=== PATIENT | male | born 1960 | race Caucasian/White ===

== ENCOUNTER 2023-07-30 09:02 | Outpatient (REF) | payer OTHER, SELFPAY ==
--- NOTE | ~2023-07-30 | XR_ITS ---
EXAMINATION: XR CHEST CLINICAL INFORMATION: Weight loss, hoarseness of voice and fatigue COMPARISON: None available. TECHNIQUE: 2 views of the chest were obtained. FINDINGS: No significant abnormality is noted involving the heart, lungs, mediastinum, bony thorax or soft tissues. XR/XR chest 2V IMPRESSION: Unremarkable examination.
[2023-07-30 11:28] LABS: MANUAL DIFF FLAG NO
[2023-07-30 11:37] LABS: Appearance Urine Clear; Color Urine Dark Yellow; Glucose Urine UA >=1000 mg/dL (Negative); Leukocyte Esterase Urine Small (1+) (Negative); Nitrite Urine Negative (Negative); PH 5.5 (5.0-9.0); Specific Gravity - Urine 1.025 (1.005-1.025); UMIC TRIGGER UA YES; Urine Blood Negative (Negative); Urine Ketones Negative (Negative); Urine Protein 30 (1+) mg/dL (Neg-Trace)
[2023-07-30 11:43] LABS: Basophils Percent Auto 0.5 % (0-2); Eosinophils Absolute Auto 0.1 X10*3/uL (0.0-0.4); Eosinophils Percent Auto 1.4 % (0-4); Hematocrit 39.2 % (42.0-52.0); Hemoglobin 13.2 g/dl (14.0-18.0); Imm Gran Abs Auto 0.02 X10*3/uL (0.00-0.03); Imm Gran Pct Auto 0.2 % (0.0-0.4); Lymphocytes Absolute Auto 1.7 X10*3/uL (1.2-4.9); Lymphocytes Percent Auto 20.4 % (20-40); Mean Corpuscular HGB Conc 33.7 g/dl (31.0-36.0); Mean Corpuscular Hemoglobin 28.2 pg (27.0-33.0); Mean Corpuscular Volume 83.8 fL (80.0-98.0); Mean Platelet Volume 10.6 fL (9.4-12.4); Monocytes Absolute Auto 0.7 X10*3/uL (0.1-1.2); Monocytes Percent Auto 8.3 % (2-11); Neutrophils Absolute Auto 5.6 x10*3/uL (2.0-8.3); Neutrophils Percent Auto 69.2 % (45-73); Platelet Count 292 X10*3/uL (160-400); Red Blood Count 4.68 X10*6/uL (4.60-5.80); Red Cell Distribution Width 11.4 % (11.0-16.0); White Blood Count 8.1 X10*3/uL (4.8-10.8)
[2023-07-30 11:58] LABS: Estimated Average Glucose 206 mg/dL; Hemoglobin A1c % 8.8 % (<6.0)
[2023-07-30 12:06] LABS: Alanine Aminotransferase 15 U/L (0-40); Albumin Level 3.8 g/dL (3.5-5.0); Alkaline Phosphatase 76 U/L (39-117); Anion Gap 12 (12-20); Aspartate Amino Transferase 10 U/L (5-37); Bilirubin Total 0.4 mg/dL (0.0-1.0); Blood Urea Nitrogen 14 mg/dL (9-16); C Reactive Protein 2.16 mg/dL (< or = 0.50); Calcium 9.7 mg/dL (8.4-10.2); Carbon Dioxide 27 mmol/L (22-29); Chloride 101 mmol/L (96-108); Estimated Glomerular Filt Rate > 60; Glucose Random 309 mg/dL (60-115); Sodium 136 mmol/L (135-145); Total Protein 6.8 g/dL (6.5-8.0)
[2023-07-30 12:13] LABS: Bacteria Urine 4+ (None Seen); Hyaline Casts Urine 0-2 /LPF (0-2); RBC Urine 0-2 /HPF (0-2); Squamous Epithelial Cell Urine 0-2 /HPF (0-2)
[2023-07-30 12:16] LABS: Prostate Specific Antigen 6.49 ng/mL (<0.05-4.0)
[2023-07-30 12:20] LABS: Erythrocyte Sedimentation Rate 26 MM/HR (0-15)
[2023-08-01 22:33] LABS: TS Negative Control Passed; TS Panel A 0; TS Panel B 0; TS Positive Control Passed; TSpotTB Negative (Negative)
== END 2023-07-30 09:03 | disposition home or self-care (01) ==
LOC: HO.HMGCX 09:02
PROVIDERS: PCP Internal Medicine; Visit Provider Internal Medicine
DX: Z12.5 Encounter for screening for malignant neoplasm of prostate (principal); Z11.1 Encounter for screening for respiratory tuberculosis; R53.83 Other fatigue; R63.4 Abnormal weight loss; R49.0 Dysphonia; R13.10 Dysphagia, unspecified
CPT/HCPCS: 36415; 71046; 80053; 81001; 83036; 84134; 84153; 85025; 85652; 86140; 86481

== ENCOUNTER 2023-08-04 08:44 | Outpatient (REF) | payer OTHER, SELFPAY ==
--- NOTE | ~2023-08-04 | FL_ITS ---
EXAMINATION: FL BARIUM SWALLOW CLINICAL INFORMATION: Dysphagia COMPARISON: None TECHNIQUE: Fluoroscopic air contrast upper GI examination was performed utilizing standard techniques with thin and thick barium and effervescent granules. Numerous spot images were obtained. FINDINGS: Lateral cine images of the oropharynx and hypopharynx demonstrate normal swallow mechanism with normal epiglottic inversion and soft palate elevation. No tracheal penetration, glottic or subglottic aspiration identified. Extensive pooling in the piriform sinuses and vallecula noted. No nasopharyngeal reflux present. Hypopharyngeal structures appear normal without evidence of mass or diverticulum. There was no significant cricopharyngeal achalasia. Dual and single contrast images of the esophagus demonstrate normal caliber, contour, and mucosal pattern. No evidence of stricture, mass, or ulcerations identified. Esophageal peristalsis was normal. A small type I hiatal hernia is present. No significant gastroesophageal reflux was seen during the course of the examination and on reflux views. FLUOROSCOPY TIME: 2 minutes 27 seconds Number of Spot Images: 3 Number of Cine: 7 DOSE AREA PRODUCT: 1084 uGy-m2 (microgray-meter squared) FL/FL barium swallow IMPRESSION: 1. Small type I hiatal hernia, otherwise unremarkable esophagram. This procedure was performed by Jesse Morris PA-C, and supervised by Dr. Strickland
== END 2023-08-04 08:45 | disposition home or self-care (01) ==
LOC: HO.XRAY 08:44
PROVIDERS: PCP Internal Medicine; Visit Provider Internal Medicine
DX: R49.0 Dysphonia (principal); R13.10 Dysphagia, unspecified; R06.09 Other forms of dyspnea
CPT/HCPCS: 74220

== ENCOUNTER 2023-08-06 14:14 | Outpatient (AMB) | payer OTHER, SELFPAY ==
--- NOTE | 2023-08-06 14:21 | A.OFFVIS_ITS ---
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 He is somewhat of a vague historian however he says last spring he was very active and subsequently started having retrosternal chest pressure which lasted for short period of time and then they went away after he started drinking more water. He then remained very active through the summer and then in early fall developed acute sciatica which cause him to be very sedentary for about a month. Then he was started on steroid treatment and the symptoms resolved and in month of April he was again back to his activity level without much symptoms. Then May he got symptoms of sciatica again he was started on steroids again. Following that in month of June he started noticing symptoms of headache and nasal congestion and subsequently was diagnosed with uncontrolled sugar related to diabetes. Seems like steroids precipitated his diabetes. He is longstanding history of hyperlipidemia on moderate does statin therapy at 10 mg with atorvastatin which was recently increased to 20 mg. Since last month he has been noticing intermittent symptoms of shortness of breath which is not always exertion related. He is also noticing retrosternal chest tightness which is again not always exertional related but can happen with exertion. He has not exerting himself to the level that he was in the past. He was referred here for further evaluation prior to participating physical therapy and further treatment options for his sciatica. He has currently not measuring his sugar on low-dose metformin therapy. He denies any prior smoking or significant family history of premature coronary artery disease [facility] Medical History Hyperlipidemia Diabetes Surgical History History of prostate surgery Family History Father Diabetes Mother No problems noted. Social History Patient Tobacco Use Status: Never used Tobacco Review of Systems Const Denies chills, Denies daytime sleepiness, Denies fatigue, Denies fever(s), Denies frequent falls, Denies poor appetite, Denies snoring, Denies stops breathing during sleep, Denies weakness, Denies weight gain and Denies weight loss Eyes Denies loss of vision ENT Denies dizziness and Denies hearing loss Card Denies chest pain, Denies claudication, Denies leg edema, Denies lightheadedn ess, Denies palpitations, Denies dyspnea, Denies dyspnea on exertion and Denies orthopnea Resp Denies cough, Denies excessive phlegm production, Denies dyspnea, Denies dyspnea on exertion, Denies snoring and Denies wheezing GI Denies abdominal pain, Denies hematochezia, Denies change in bowel habits, Denies nausea and Denies vomiting Denies dysuria and Denies urinary frequency Musc Denies arthralgias, Denies muscle weakness, Denies numbness and Denies other (frequent falls) Skin/Breast Denies nail changes and Denies rash Neuro Denies Abnormal speech present, Denies dizziness, Denies frequent falls, Denies loss of vision, Denies memory loss, Denies numbness and Denies weakness Psych Denies depression and Denies memory loss Endo Denies fatigue and Denies palpitations Garrett/Lymph Reports easy bruising and Reports other (anemia) Aller/Immun Denies wheezing Physical Exam Vital Signs: Last Vital Signs Pulse 70 08/06/23 14:22 BP 124/78 08/06/23 14:22 BMI result Body Mass Index 26.0 Const General: cooperative, comfortable, no acute distress, alert, awake and anxious Nutritional Appearance: thin Orientation/consciousness: patient oriented x3 Limitations: no limitations HEENT Head: Yes normocephalic and Yes atraumatic Neck Neck: Yes trachea midline, Yes supple and Yes no JVD Resp Effort & Inspection: normal respiratory effort Auscultation: clear to auscultation bilaterally Cardio Jugular venous distension: no JVD Palpation: normal PMI Rate: regular rate Rhythm: regular rhythm Heart sounds: S1 normal heart sound present, S2 normal heart sound present, no click, no gallops, no murmurs and no rubs Peripheral pulses: Peripheral pulses 2+ throughout GI Auscultation: normal bowel sounds Skin General skin exam: no rashes or lesions noted Neuro General: patient oriented x3 and no focal motor deficits Speech: No Abnormal speech present Extrem General: Yes no clubbing, cyanosis or edema Psych Appearance: grossly normal Office Procedures EKG Details: EKG shows normal sinus rhythm with normal EKG [id number], Complete Assessment & Plan Assessment & Plan (1) Atypical chest pain: Code(s): R07.89 - Other chest pain Plan: Patient present with new onset symptoms of chest tightness with atypical features along with shortness of breath with atypical features. Myocardial ischemia is likely given his risk factors of newly diagnosed diabetes and longstanding history of hyperlipidemia. Would suggest him to undergo treadmill stress test and he said he can exercise on treadmill for me. His baseline EKG is within normal limits. Further treatment based on the findings. Will also suggest an echocardiogram to evaluate LV systolic and diastolic function to evaluate for pulmonary hypertension. These tests will be scheduled in near future. Further treatment based on the findings. If is treadmill stress test is negative and not suggestive of obstructive coronary artery disease can consider coronary calcium score to further assess and guide treatment and intensification lipid management if possible. Target goal LDL less than 70 mg/dL. Target goal hemoglobin A1c less than 7%. Will follow up in the clinic after above-mentioned test. Thank you for allowing me to partake in his care Orders: Orders CA echo transthoracic complete Today R0 - Other chest pain CA stress test Today R0 - Other chest pain Coding Level of Care Code New Pt Level 4 (56404) Diagnoses Atypical chest pain R0 CPT Codes EKG - CPT: 95289-[id number], Complete ([id number])
[2023-08-06 14:22] VITALS: BP 124/78; PULSE 70; BMI 26.0
== END 2023-08-06 15:03 | disposition home or self-care (01) ==
PROVIDERS: PCP Internal Medicine; Visit Provider Internal Medicine Cardiovascular Disease
DX: R07.89 Other chest pain (principal)
CPT/HCPCS: 93010; 99204

== ENCOUNTER → 2023-08-06 14:14 | Outpatient (BNVA) | payer OTHER, SELFPAY | PROVIDERS: PCP Internal Medicine; Visit Provider Internal Medicine Cardiovascular Disease | DX: R07.89 Other chest pain (principal) | CPT/HCPCS: 93005 ==

== ENCOUNTER 2023-08-26 07:58 | Outpatient (REF) | payer OTHER, SELFPAY ==
[2023-08-26 11:12] LABS: MANUAL DIFF FLAG NO
[2023-08-26 11:36] LABS: Appearance Urine Clear; Color Urine Yellow; Glucose Urine UA Negative (Negative); Leukocyte Esterase Urine Negative (Negative); Nitrite Urine Negative (Negative); PH 5.5 (5.0-9.0); Specific Gravity - Urine 1.025 (1.005-1.025); Urine Blood Negative (Negative); Urine Ketones Negative (Negative); Urine Protein Negative (Neg-Trace)
[2023-08-26 11:39] LABS: Basophils Absolute Auto 0.1 X10*3/uL (0.0-0.2); Basophils Percent Auto 0.9 % (0-2); Eosinophils Absolute Auto 0.3 X10*3/uL (0.0-0.4); Eosinophils Percent Auto 5.2 % (0-4); Hematocrit 44.3 % (42.0-52.0); Hemoglobin 14.8 g/dl (14.0-18.0); Imm Gran Abs Auto 0.02 X10*3/uL (0.00-0.03); Imm Gran Pct Auto 0.3 % (0.0-0.4); Lymphocytes Percent Auto 30.9 % (20-40); Mean Corpuscular HGB Conc 33.4 g/dl (31.0-36.0); Mean Corpuscular Hemoglobin 27.8 pg (27.0-33.0); Mean Corpuscular Volume 83.1 fL (80.0-98.0); Monocytes Absolute Auto 0.5 X10*3/uL (0.1-1.2); Monocytes Percent Auto 7.1 % (2-11); Neutrophils Absolute Auto 3.5 x10*3/uL (2.0-8.3); Neutrophils Percent Auto 55.6 % (45-73); Platelet Count 189 X10*3/uL (160-400); Red Blood Count 5.33 X10*6/uL (4.60-5.80); Red Cell Distribution Width 13.2 % (11.0-16.0); White Blood Count 6.4 X10*3/uL (4.8-10.8)
[2023-08-26 11:48] LABS: Estimated Average Glucose 157 mg/dL; Hemoglobin A1c % 7.1 % (<6.0)
[2023-08-26 11:58] LABS: Alanine Aminotransferase 27 U/L (0-40); Albumin Level 4.2 g/dL (3.5-5.0); Alkaline Phosphatase 51 U/L (39-117); Anion Gap 11 (12-20); Aspartate Amino Transferase 21 U/L (5-37); Bilirubin Total 0.4 mg/dL (0.0-1.0); Blood Urea Nitrogen 14 mg/dL (9-16); C Reactive Protein < 0.04 mg/dL (< or = 0.50); Calcium 9.2 mg/dL (8.4-10.2); Carbon Dioxide 26 mmol/L (22-29); Chloride 106 mmol/L (96-108); Cholesterol 145 mg/dL (<200); Estimated Glomerular Filt Rate > 60; Glucose Fasting 124 mg/dL (60-99); HDL Cholesterol 46 mg/dL (>40); LDL Cholesterol Calculated 81 mg/dL (<100); Potassium 4.4 mmol/L (3.3-5.1); Sodium 139 mmol/L (135-145); Total Protein 6.4 g/dL (6.5-8.0); Triglycerides 90 mg/dL (<150)
[2023-08-26 12:02] LABS: Bacteria Urine None Seen (None Seen); Calcium Oxalate Crystals Urine Present; Hyaline Casts Urine 0-2 /LPF (0-2); RBC Urine 0-2 /HPF (0-2); Squamous Epithelial Cell Urine 0-2 /HPF (0-2); WBC Urine 0-5 /HPF (0-5)
[2023-08-26 12:05] LABS: PSA,Total (Free>4and<10) 3.87 ng/mL (0.00-4.00)
[2023-08-26 12:12] LABS: Creatinine Urine 132.44 mg/dL; Microalbum/Creatinine Ratio Ur 40.7 ug/mg cr (<30)
[2023-08-26 12:16] LABS: Erythrocyte Sedimentation Rate 2 MM/HR (0-15)
[2023-08-26 13:23] LABS: Thyroid Stimulating Hormone 0.09 uIU/mL (0.32-4.0); Vitamin D 25-OH Total 83.9 ng/mL (>30)
== END 2023-08-26 07:59 | disposition home or self-care (01) ==
LOC: HO.HMGCLDS 07:58
PROVIDERS: PCP Internal Medicine; Visit Provider Internal Medicine
DX: Z12.5 Encounter for screening for malignant neoplasm of prostate (principal); E11.9 Type 2 diabetes mellitus without complications; E78.00 Pure hypercholesterolemia, unspecified; N40.0 Benign prostatic hyperplasia without lower urinary tract symptoms; E55.9 Vitamin D deficiency, unspecified
CPT/HCPCS: 36415; 80053; 80061; 81001; 82043; 82306; 82570; 83036; 84134; 84153; 84443; 85025; 85652; 86140

== ENCOUNTER → 2023-08-29 08:48 | Outpatient (REF) | payer OTHER, SELFPAY ==
--- NOTE | 2023-08-29 08:51 | CA_ITS ---
Transthoracic Echocardiogram Patient (Last, First, Middle): Luis Roblero A Gender: Male Date of : 1960 Age: 63 Procedure Date: 08/29/2023 Procedure Type: Transthoracic Echocardiogram Location: OP Height: 177. cm Weight: 79.38 kg BSA: 1.97 m2 Heart Rate: 62 bpm BP: 105 / 70 mmHg Residential Concierge: RUSSEL Referring MD: Nishant Alvarado MD Symptoms: R07.89 - Other chest pain Study Quality: Fair ECG Rhythm: Sinus Conclusions: - The left ventricular systolic function is normal. The calculated ejection fraction is 66% by biplane method. - No obvious valvular pathology seen on this study. - There is mild dilatation of the sinuses of Valsalva measuring 4.10 cm, mild dilatation of the ascending aorta measuring 4.10 cm, and mild dilatation of the aortic arch measuring 3.80 cm. Findings Left Ventricle Normal left ventricular cavity size. There is normal left ventricular wall thickness. The left ventricular systolic function is normal. The calculated ejection fraction is 66% by biplane method. There is no evidence of regional wall motion abnormalities. Diastolic function is normal for age. LV peak GLS -19.3%. Right Ventricle Normal right ventricular cavity size and systolic function. Atria Both atria are normal in size. Aortic Valve There is a normal trileaflet aortic valve. There is no aortic valve stenosis. There is no aortic valve regurgitation. Mitral Valve The mitral valve appears normal. There is no mitral valve regurgitation. There is no mitral valve stenosis. Pulmonic Valve The pulmonic valve is likely normal. Tricuspid Valve Normal tricuspid valve structure. There is trace tricuspid valve regurgitation. There is no evidence of pulmonary hypertension. Great Vessels There is mild dilatation of the sinuses of Valsalva measuring 4.10 cm, mild dilatation of the ascending aorta measuring 4.10 cm, and mild dilatation of the aortic arch measuring 3.80 cm. Venous The inferior vena cava is normal in size and collapses greater than 50% with inspiration. Pericardium/Pleural There is no evidence of pericardial effusion. Prior Study Comparison No prior study available for comparison. Recommendations, Care & Conclusions No obvious valvular pathology seen on this study. Measurements 2D Linear Measurements IVSd: 0.94 0.6-0.9/0.6-1.0 cm LVIDd: 5.21 3.9-5.3/4.2-5.9 cm LVIDd Index: 2.64 2.4-3.2/2.2-3.1 cm/m2 LVIDs: 2.35 2.0-3.6 cm LVPWd: 0.94 0.7-1.1 cm LA Diam: 3.70 2.7-3.8/3.0-4.0 cm LAIDs Index: 1.88 1.5-2.3 cm/m2 LV Mass: 223.27 67-162/88-224 g LV Mass Index: 113.33 43-95/49-115 g/m2 LVOT Diam: 2.10 3.0+(-)1.3 cm 2D Systolic Function EF 4C: 69.20 >55% EF 2C: 62.80 >55% EF BiP: 65.70 >55% Mitral Valve MV Pk E: 0.60 MV PK A: 0.86 MV Decel Time: 319.00 E/A: 0.70 E'Lateral: 9.57 E'Medial: 6.53 E/E' Med: 9.20 E/E' Lat: 6.30 PHT: 93.00 MVA PHT: 2.37 Decel Walker: 1.88 Aortic Valve AoV Pk Javi: 1.37 AoV Mn Javi: 0.95 AoV VTI: 0.27 AoV Pk Grad: 8.00 Aov Mn Grad: 4.00 ANDREW Cont.VTI: 2.83 LVOT LVOT Pk Javi: 1.09 LVOT Mn Javi: 0.71 LVOT VTI: 0.22 LVOT Pk Grad: 5.00 LVOT Mn Grad: 2.00 LVOT Diam: 2.10 LVOT Area: 3.46 Diastolic Function MV Pk E: 0.60 MV Pk A: 0.86 E/A: 0.70 E'Medial: 6.53 E/E' Med: 9.20 E' Laterial: 9.57 E/E' Lat: 6.30 Right Ventricle TAPSE (mm): 23.50 TVS' Javi: 13.70 Tricuspid Valve RA Press: 3.00 Great Vessels Aorta Sinus of Valsalva: 4.10 2.0-3.5 cm Ao Asc: 4.10 2.1-3.4 cm Ao Arch: 3.80 Pulmonary Valve PV Pk Javi: 1.13 Peak PV Grad: 5.00 Updated in Other Vendor System with Status of Final Erasmo Scruggs MD electronically signed on 08/31/2023 7:54:05 AM with status of Final
--- NOTE | 2023-08-29 08:51 | CA_ITS ---
Acquisition Time: 2023-08-29 10:05:32 Total Exercise Time: 00:10:02 Test Indications: cp,sob Medications: see h Protocol: ONEL Max HR: 139 BPM 87% of Pred: 158 BPM Max BP: 166/064 mmHG Max Work Load: 11.8 METS Exercise stress test exercise 10 min 2 sec of Onel protocol achieving 87% MPHR, without anginal symptoms, without arrhythmais, with normotensive response to exercise, without EKG changes. Test reviewed with Dr. Scruggs. Referred By: Nishant Alvarado Overread By: Rabia Strickland
== END ==
LOC: HO.CARD 08:48
PROVIDERS: PCP Internal Medicine; Visit Provider Internal Medicine Cardiovascular Disease
DX: R07.89 Other chest pain (principal); R06.09 Other forms of dyspnea; R13.10 Dysphagia, unspecified; R49.0 Dysphonia
CPT/HCPCS: 93017; 93306; 93356

== ENCOUNTER → 2023-08-29 08:51 | Outpatient (BNV) | payer OTHER, SELFPAY | PROVIDERS: PCP Internal Medicine; Visit Provider Nurse Practitioner | DX: R07.89 Other chest pain (principal) | CPT/HCPCS: 93016; 93018; 93306 ==

== ENCOUNTER 2023-09-11 15:39 | Outpatient (AMB) | payer OTHER, SELFPAY ==
[2023-09-11 15:48] VITALS: BP 124/72; PULSE 65; BMI 26.8
--- NOTE | 2023-09-11 15:48 | A.OFFVIS_ITS ---
Intake Vital Signs 09/11/23 15:48 Height 5 ft 9 in Weight 181 lb 3.52 oz BMI 26.8 BP 124/72 Blood Pressure Location Rt brachial Position Sitting Pulse 65 Pulse Source Pulse Oximeter Intake Visit Reasons: f/up ett/ echo NS Respiratory Therapy Manager Required: No Environmental Epidemiologist: Environmental Epidemiologist Present Allergies No Known Allergies Allergy (Verified 09/11/23 15:50) Medication List - Last Reconciled 09/11/23 by Ria Navarro, MARÍA-C atorvastatin 40 mg PO BEDTIME finasteride 5 mg PO DAILY metformin ER 2,000 mg PO DAILY HPI f/up ett/ echo NS HPI Details Luis is a 63-year-old male with past medical history of hyperlipidemia and newer diagnosis of diabetes who was recently seen for reports of atypical sounding chest discomfort. He underwent a stress test and echocardiogram and now presents for follow-up. Today he reports that overall his symptoms have improved. Is no longer getting the chest pressure that he had been experiencing last month. His breathing is comfortable, no PND, orthopnea or edema. No heart palpitations, lightheadedness, presyncope, syncope, falls. His blood sugars are now better controlled and he feels that is contributing to why he is feeling better. He has been increasing his walking. Sciatica improving. is present. [facility] Medical History Hyperlipidemia Diabetes Surgical History History of prostate surgery Family History Father Diabetes Mother No problems noted. Social History Patient Tobacco Use Status: Never used Tobacco Review of Systems Const All systems reviewed & are unremarkable except as noted in HPI and below ENT Denies dizziness Card Denies chest pain, Denies chest pain at rest, Denies chest pain with activity, Denies rapid heart rate, Denies pedal edema, Denies edema, Denies leg edema, Denies lightheadedness, Denies palpitations, Denies dyspnea, Denies dyspnea on exertion and Denies orthopnea Resp Denies cough, Denies dyspnea and Denies dyspnea on exertion GI Denies hematochezia and Denies change in stool character Musc Denies abnormal gait, Denies limited range of motion, Denies muscle cramps, Denies muscle weakness, Denies numbness, Denies radiating pain into limb, Denies stiffness and Denies tingling Neuro Denies abnormal gait, Denies dizziness, Denies numbness and Denies tingling Endo Denies palpitations Physical Exam Vital Signs: Last Vital Signs Pulse 65 09/11/23 15:48 BP 124/72 09/11/23 15:48 BMI result Body Mass Index 26.8 Const General: cooperative, healthy appearing, comfortable and no acute distress Orientation/consciousness: patient oriented x3 Neck Neck: Yes normal visual inspection and Yes no JVD Resp Effort & Inspection: normal respiratory effort Auscultation: clear to auscultation bilaterally, no crackles, no rales, no rhonchi and no wheezes Cardio Jugular venous distension: no JVD Rate: regular rate Rhythm: regular rhythm Heart sounds: S1 normal heart sound present, S2 normal heart sound present, no murmurs and no rubs GI Inspection: Yes normal to inspection Skin General skin exam: no rashes or lesions noted Neuro General: patient oriented x3 Extrem General: Yes normal to inspection, No no pedal edema and No calf tenderness Psych Appearance: grossly normal Mental Status: mental status grossly normal Speech and movement: Normal speech and movement present Assessment & Plan Assessment & Plan (1) Atypical chest pain: Code(s): R07.89 - Other chest pain Plan: Prior reports of chest pressure occurring randomly and with activity. No known history coronary artery disease. Cardiac risks of hyperlipidemia and new diagnosis of diabetes. EKG done last visit shows normal sinus rhythm with no acute ST or T-wave abnormalities. Ed underwent a exercise stress test on 08/29/2023 with exercise over 10 minutes, no anginal symptoms and no EKG changes of ischemia. Echocardiogram done 08/29/2023 showing EF 66%, no regional wall motion abnormalities, no valve abnormalities, mild dilation at the sinus of Valsalva 4.1 cm, ascending aorta 4.1 cm. Today he reports that his prior chest pressure has resolved. He denies chest discomfort at rest or with activity. No concerning shortness of breath. Blood sugars have been better controlled. He contributes this to his feeling better. Test results reviewed with him in detail. In order to further evaluate his risk for coronary artery disease will obtain a coronary calcium score. Patient is agreeable to this procedure and is aware that it is a self-pay test. Plan to call him with results. At this time will continue with risk factor modification. Continue atorvastatin with ideal LDL goal less than 70. Ongoing management of diabetes with hemoglobin A1c goal less than 7. Signs and symptoms of angina reviewed with him. Cardiology office visit follow-up in 1 year. Recheck of echo prior to that visit. (2) Diabetes: Code(s): E11.9 - Type 2 diabetes mellitus without complications Plan: New diagnosis as above. (3) Hyperlipidemia: Code(s): E78.5 - Hyperlipidemia, unspecified Plan: Boyce LDL goal less than 70 in patient with diabetes. Labs done on 08/26/2023 showed LDL 81. At that time his atorvastatin dose had been increased up to 40 mg daily. Is planning a fasting lipid profile as ordered by his PCP in the near future. 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 Reviewed with him. Blood pressure is well controlled. Patient denies any history of hypertension. He is on statin. Repeat echo plan 1 year from last. Plan Time spent on chart review, documentation, interview and assessment Orders: Orders CA echo transthoracic complete 08/23/24 I77.810 - Thoracic aortic ectasia CT Coronary Calcium Score 09/11/23 E11.9 - Type 2 diabetes mellitus without complications, E78.5 - Hyperlipidemia, unspecified, R07.89 - Other chest pain Coding Level of Care Code Est Pt Level 4 (46083) Diagnoses Atypical chest pain R07.89 Diabetes E11.9 Hyperlipidemia E78.5 Ascending aorta dilatation I77.810 Time Spent (min) 30
== END 2023-09-11 16:30 | disposition home or self-care (01) ==
PROVIDERS: PCP Internal Medicine; Visit Provider Nurse Practitioner Family
DX: R07.89 Other chest pain (principal); E11.9 Type 2 diabetes mellitus without complications; E78.5 Hyperlipidemia, unspecified; I77.810 Thoracic aortic ectasia
CPT/HCPCS: 99214

== ENCOUNTER → 2023-09-11 15:39 | Outpatient (BNVA) | payer OTHER, SELFPAY | PROVIDERS: PCP Internal Medicine; Visit Provider Nurse Practitioner Family ==

== ENCOUNTER 2023-09-16 09:27 | Outpatient (REF) | payer OTHER, SELFPAY ==
[2023-09-16 12:49] LABS: Free T4 (Free Thyroxine) 0.79 ng/dL (0.71-1.85); Thyroid Stimulating Hormone 2.77 uIU/mL (0.32-4.0)
[2023-09-18 02:53] LABS: Triiodothyronine T3 Free 2.5 pg/mL (2.3-4.2)
== END 2023-09-16 09:28 | disposition home or self-care (01) ==
LOC: HO.HMGCLDS 09:27
PROVIDERS: PCP Internal Medicine; Visit Provider Internal Medicine
DX: E05.90 Thyrotoxicosis, unspecified without thyrotoxic crisis or storm (principal)
CPT/HCPCS: 36415; 84439; 84443; 84481

== ENCOUNTER 2023-10-21 10:02 | Emergency (ER) | payer OTHER, SELFPAY ==
--- NOTE | ~2023-10-21 | XR_ITS ---
EXAMINATION: XR LUMBOSACRAL SPINE CLINICAL INFORMATION: Pain COMPARISON: Same-day sacrum and coccyx TECHNIQUE: Three views of the lumbosacral spine. FINDINGS: There 5 nonrib-bearing lumbar-type vertebral bodies. The height of the vertebral bodies is well-maintained. There is grade 1 anterolisthesis of L5 with respect to S1 and question of L5 spondylolysis. There is mild retrolisthesis of L1 respect to L2. There is mild disc space narrowing at L3-L4 and L5-S1 with marginal osteophyte formation. There is mild straightening of the usual lumbar lordosis is seen with muscle spasm. XR/XR lumbar spine 2-3V IMPRESSION: 1. Muscle spasm. 2. Degenerative disc disease at L3-L4 and L5-S1. 3. Grade 1 anterolisthesis of L5 with respect to S1 and question of L5 spondylolysis. CT scan or MRI scan could be obtained for further evaluation.
--- NOTE | ~2023-10-21 | XR_ITS ---
EXAMINATION: XR SACRUM AND COCCYX CLINICAL INFORMATION: Pain COMPARISON: Same-day lumbar spine TECHNIQUE: 2 views of the sacrum and 2 views of the coccyx were obtained. FINDINGS: The sacrum is partly obscured by bowel gas on the frontal views. There are no fractures. Degenerative changes seen in the lower lumbar spine. XR/XR sacrum coccyx min 2V IMPRESSION: No fracture of the sacrum or coccyx.
[2023-10-21 10:22] VITALS: BP 141/91; PULSE 76; RESP 16; TEMP 37; BMI 25.4
--- NOTE | 2023-10-21 15:30 | ED_ITS ---
HPI - Back Pain/Injury General Chief Complaint: Back Pain/Injury Stated Complaint: Back Pain No Injury Time Seen by Provider: 10/21/23 11:23 Source: patient, family and RN notes reviewed Mode of arrival: ambulatory Limitations: no limitations History of Present Illness HPI Narrative: This is a 63-year-old male, with a history of cervical degenerative disc disease, and newly diagnosed type 2 diabetes, who presents emergency department with complaints of acute on chronic low back pain. Patient states that initially he hurt his back in March after moving. He states that he was treated initially with steroids and the pain somewhat resolved. He states that the pain and worsened in May and was treated with a 2nd course of steroids. Because of the steroid use his glucose level became very uncontrolled and was ultimately diagnosed with diabetes. He is now on metformin. He states that 5 days ago he went on a 2-3 mi hike and this worsened his back pain significantly. He states that the pain is constant, and occasionally radiates into his anterior right thigh. He states that he has had trouble ambulating due to the pain. He denies any fevers, chills, chest pain, shortness breast, abdominal pain, nausea, vomiting or diarrhea. Denies any urinary or bowel retention or incontinence. No saddle anesthesia. He has been taking ibuprofen at home which has provided him with some relief. He has been followed by his primary care physician however they are having a difficult time obtaining MRI at this time and may have to go through physical therapy prior to having this diagnostic imaging performed. He denies any other complaints or concerns at this time. MD elicited complaint: back pain and back injury Pertinent past history: prior back pain Onset (ago): day(s) Timing: constant and progressively worsening Severity: moderate Similar Symptoms Previously: Yes Quality: aching Location: lumbar spine Radiation: none Exacerbating factors: movement and supine positioning Relieving factors: immobilization Associated symptoms: denies other symptoms Treatments prior to arrival: NSAIDS Work related injury: No Related Data Home Medications Medication Instructions Recorded Confirmed finasteride 5 mg tablet 5 mg PO DAILY 08/06/23 09/11/23 atorvastatin 20 mg tablet 40 mg PO BEDTIME 09/11/23 09/11/23 metformin 500 mg tablet,extended 2,000 mg PO DAILY 09/11/23 09/11/23 release 24 hr Previous Rx's Medication Instructions Recorded acetaminophen 500 mg tablet 1,000 mg (2 x 500 mg) PO TID PRN 10/21/23 (Tylenol Extra Strength) pain #30 tabs ibuprofen 600 mg tablet 600 mg PO Q6H PRN pain #30 tabs 10/21/23 lidocaine 5 % topical patch 1 patch topical DAILY #30 ea 10/21/23 methocarbamol 750 mg tablet 750 mg PO QID 3 days #12 tabs 10/21/23 Allergies Allergy/AdvReac Type Severity Reaction Status Date / Time No Known Allergies Allergy Verified 09/11/23 15:50 Review of Systems Review of Systems: Yes all other systems are reviewed and are negative Constitutional: Constitutional: Reports as per [facility] Past Medical History Attestation statement: The following information was validated with the patient. Medical History Hyperlipidemia Diabetes Surgical History History of prostate surgery Family History Family History Father Diabetes Mother No problems noted. Social History Social History Patient Tobacco Use Status: Never used Tobacco Advance Directives: No Physical Exam Vital Signs: Vital Signs: Last Vital Signs Temp 98.2 F 10/21/23 15:44 Pulse 74 10/21/23 15:44 Resp 16 10/21/23 15:44 BP 133/88 10/21/23 15:44 Pulse Ox 95 10/21/23 15:44 O2 Del Method Room Air 10/21/23 15:44 BMI result Body Mass Index 25.4 Const: General: cooperative, comfortable and no acute distress Orientation/consciousness: patient oriented x3 Limitations: no limitations HEENT: Head: Yes normal to inspection, Yes normocephalic and Yes atraumatic Ears: hearing grossly normal bilaterally General nose exam: Normal external nose present Face and sinus: Yes normal facial exam Mouth: Normal oral and palatal mucosa present, oropharynx normal and moist mucous membranes Throat: Yes posterior oropharynx normal Eyes: General: appearance normal, both eyes and all related structures Eyelids: Yes eyelids normal Conjunctivae: conjunctivae normal Sclerae: sclerae normal Pupils: Equal, round and reactive pupils present EOM: EOMs intact bilaterally Neck: Neck: Yes normal visual inspection, Yes full ROM and Yes no lymphadenopathy Lymphatic: no lymphadenopathy noted Chest: Chest palpation & inspection: normal inspection of the chest Resp: Effort & Inspection: normal respiratory effort and able to speak in complete sentences Auscultation: clear to auscultation bilaterally, no crackles, no rales, no rhonchi and no wheezes Cardio: Rate: regular rate Rhythm: regular rhythm Heart sounds: S1 normal heart sound present and S2 normal heart sound present GI: Inspection: Yes normal to inspection Back/Spine/Pelvis: Other: Patient has mild tenderness palpation in the lumbar midline spine as well as right lumbar paraspinous muscles. DTR 2+, distal sensation circulation intact. Strength 5/5 in lower extremities. Ambulatory with steady gait Skin: General skin exam: no rashes or lesions noted Trauma: no lacerations or abrasions Wounds: no wounds Neuro: General: patient oriented x3 and moves all extremities Cranial nerves: Yes Equal, round and reactive pupils present Extrem: General: Yes normal to inspection Right upper extremity: normal to inspection Left upper extremity: normal to inspection Right lower extremity: normal to inspection Left lower extremity: normal to inspection Course Reevaluation(s) Reevaluation #1: X-rays were obtained, revealing muscle spasm, degenerative disc disease at L3-L4 and L5-S1. Also showing grade 1 anterolisthesis of L5 with respect to S1 and question of L5 spondylolysis. Given patient does not have red flag back symptoms at this time, MRI, CT scan not warranted at this time. Patient given referral to Dr. Padilla as well as advised to follow-up with primary care physician for further management of his symptoms. Discharge patient Robaxin, ibuprofen, Tylenol, Lidoderm patches. Given return precautions. He understands and agrees with plan. Patient stable for discharge. Time: 15:58 Medical Decision Making Medical Decision Making MDM Narrative: This is a 63-year-old male, with a history of diabetes, and degenerative disc disease, who presents to the emergency department complaints of acute on chronic back pain. On arrival, patient mildly hypertensive at 141/91, all other vital signs within normal limits. He has tenderness to palpation along the lumbar midline spine as well as right paraspinous muscles. Patient has not had any x- rays performed since the start of his symptoms in March therefore I think it is warranted to obtain x-rays. He has no red flag back symptoms. Differential diagnoses includes lumbago versus musculoskeletal spasm / strain versus sciatica. No back pain red flags on history or physical. Presentation not consistent with malignancy (lack of history of malignancy, lack of B symptoms), fracture (no trauma, no bony tenderness to palpation), cauda equina syndrome (no bowel or urinary incontinence/retention, no saddle anesthesia, no distal weakness),pyelonephritis (afebrile, no CVAT, no urinary symptoms). Given the clinical picture, no indication for imaging at this time. Plan: X-rays Differential Diagnosis Differential Diagnoses: The differential diagnosis associated with the presentation includes See above Admission/Observation Consideration of admission/observation: Escalation of care including admission/observation considered Independent Interpretation I performed an independent interpretation of an: Plain X-Ray Interpretation: I reviewed the x-ray and agree with the radiology report Radiology Impression Discussion of test interpretation with radiology: I have reviewed the radiologist's reading. Radiologist Impression: EXAMINATION: XR SACRUM AND COCCYX CLINICAL INFORMATION: Pain COMPARISON: Same-day lumbar spine TECHNIQUE: 2 views of the sacrum and 2 views of the coccyx were obtained. FINDINGS: The sacrum is partly obscured by bowel gas on the frontal views. There are no fractures. Degenerative changes seen in the lower lumbar spine. XR/XR sacrum coccyx min 2V IMPRESSION: No fracture of the sacrum or coccyx. Dictated By: Alice Peterson MD EXAMINATION: XR LUMBOSACRAL SPINE CLINICAL INFORMATION: Pain COMPARISON: Same-day sacrum and coccyx TECHNIQUE: Three views of the lumbosacral spine. FINDINGS: There 5 nonrib-bearing lumbar-type vertebral bodies. The height of the vertebral bodies is well-maintained. There is grade 1 anterolisthesis of L5 with respect to S1 and question of L5 spondylolysis. There is mild retrolisthesis of L1 respect to L2. There is mild disc space narrowing at L3-L4 and L5-S1 with marginal osteophyte formation. There is mild straightening of the usual lumbar lordosis is seen with muscle spasm. XR/XR lumbar spine 2-3V IMPRESSION: 1. Muscle spasm. 2. Degenerative disc disease at L3-L4 and L5-S1. 3. Grade 1 anterolisthesis of L5 with respect to S1 and question of L5 spondylolysis. CT scan or MRI scan could be obtained for further evaluation. Independent Historian Clinical information obtained from an independent historian. History obtained from or confirmed by: Spouse Prescription Management I considered prescription management with: Pain Medication Chronic Conditions Patient?s care impacted by: Diabetes Discharge Plan Discharge Clinical Impression: Back pain, Degenerative disc disease, lumbar, Anterolisthesis of lumbar spine, Spondylolysis, lumbar region Patient Disposition: Home, Self-Care Instructions: Acute Low Back Pain (ED), Back Pain (ED) Additional Instructions: You were seen in the emergency department due to back pain. Your x-ray of your spine shows degenerative disc disease at L3-L4, and L5-S1. You also have grade 1 anterolisthesis of L5 with respect to S1 and question of L5 spondylolysis. Your x-ray also reveals evidence of a muscle spasm. Because of these findings, you will likely need an outpatient MRI for further imaging treatment. Please call your primary care physician as well as Dr. Rangel tomorrow to make an appointment for follow-up. Please alternate between ibuprofen and Tylenol as needed for pain. I am also prescribing you a muscle relaxant, please be advised that this can cause drowsiness, do not drink alcohol or drive while taking this medication. Use Lidoderm patches as needed for pain as well. If any new or worsening symptoms occur including but not limited to urinary bowel retention or incontinence or numbness and tingling anterior groin, please seek emergent care. Prescriptions: New ibuprofen 600 mg tablet 600 mg PO Q6H PRN (Reason: pain) Qty: 30 0RF acetaminophen [Tylenol Extra Strength] 500 mg tablet 1,000 mg PO TID PRN (Reason: pain) Qty: 30 0RF lidocaine 5 % adhesive patch,medicated 1 patch topical DAILY Qty: 30 0RF Rx Instructions: leave on most painful area for up to 12 hrs methocarbamol 750 mg tablet 750 mg PO QID 3 Days Qty: 12 0RF No Action finasteride 5 mg tablet 5 mg PO DAILY atorvastatin 20 mg tablet 40 mg PO BEDTIME metformin 500 mg tablet extended release 24 hr 2,000 mg PO DAILY Referrals: Spencer Rangel MD, PhD [Physician] - Spencer Rangel MD, PhD [Physician] - Discharge Date/Time: 10/21/23 15:46
[2023-10-21 15:44] VITALS: BP 133/88; PULSE 74; RESP 16; TEMP 36.8; O2SAT 95
== END 2023-10-21 15:46 | disposition home or self-care (01) ==
PROVIDERS: Emergency Provider Emergency Medicine; PCP Internal Medicine
DX: M51.36 Other intervertebral disc degeneration, lumbar region (principal); M43.16 Spondylolisthesis, lumbar region; E11.9 Type 2 diabetes mellitus without complications; Z79.84 Long term (current) use of oral hypoglycemic drugs
CPT/HCPCS: 72100; 72220; 99282; 99283

== ENCOUNTER 2023-10-28 10:48 | Outpatient (AMB) | payer OTHER, SELFPAY ==
--- NOTE | 2023-10-28 10:52 | A.SPINEOV_ITS ---
Intake Intake Visit Reasons: acute on chronic low back pain Intake Note: Mr. Roblero is here today c/o back pain/ does not have MRI/C xray shows spondylolisthesis at L3-4 [employer]ist Required: No Allergies No Known Allergies Allergy (Verified 10/28/23 11:09) Assessment & Plan Assessment & Plan (1) Lumbar radiculopathy: Code(s): M54.16 - Radiculopathy, lumbar region Plan Dear Dr Garcia, . I saw Mr Roblero in the office today as a follow-up from his emergency room visit last week. Is a very nice 63-year-old gentleman who started having back pain and pain going down his right anterior thigh into his knee sometime last March. He feels as though he may have lifted something at the time, but was not exactly sure what happened. He treated it with steroids and after about a month that went away. Maybe a month or more after that the symptoms started again. He repeated the process with steroids and ultimately symptoms got significantly better. Along the way during that process because of the steroids he had a hyper glycemia that ultimately transitioned him from a prediabetic to a full diabetic. He had a strange set of symptoms including weight loss fatigue and body aches at the time. Ultimately he ended up on metformin and his glucose has come down. His last A1c was 7.1. Throughout that process though the symptoms of the low back pain and right leg pain came back. Tells me that the back pain really is not that bad it is primarily the right anterior thigh pain i nto his knee that is excruciating. Standing for any length of time is almost unbearable. Walking is also significantly difficult. He can not lay down put his legs flat either. He ended up in the emergency room on October 20 because he was in so much pain he could not stand it anymore. They did an x-ray showing some degenerative disc disease and I saw him in follow-up to evaluate. As I understand he has an MRI pending for later this month. He does not report any weakness or numbness of the right thigh. No symptoms on the left. PMH: History of BPH with TURP, diabetes, his last A1c 7.1, high cholesterol. Other than that he is reasonably healthy gentleman. Social hx: He does not smoke, use any alcohol or any recreational drugs Medications: Metformin, finasteride, Lipitor, vitamin-D, ibuprofen, Tylenol muscle relaxers Allergies: None Physical exam: He has full strength of bilateral lower extremities, absent reflex in the right patella and some atrophy of the right quadriceps Imaging review: He just has x-rays done in the emergency room showing a slight spondylolisthesis at L3-4 with a right-sided disc collapse. Impression: 63-year-old gentleman presents to the office with about a 6-7 month history of low back pain and right anterior thigh pain going into his knee which sounds like an L3, L4 dermatomal distribution. He is also demonstrating some atrophy of the quadriceps and an absent reflex at the patella. I suspect he has a radiculopathy or a herniated disc coming from the L3-4 intervertebral disc space where we see the collapse on the x-ray on the AP view. At this point he is awaiting an MRI which will give us more information and can tell us more about what the surgical options will be. I anticipate he is going to need surgery. Because of insurance stipulations before surgery, I will send him to physical therapy but I do not think it is going to do much. I prescribed him gabapentin to try to help with some of the pain because he is absolutely miserable and discomfort when he is trying to stand and walk. I am going to see if my office staff can contact your office staff to move up the MRI and I will see him back in the office to discuss the results. Thank you for allowing us to care for your patient. The total time spent with this visit with this patient was 45 minutes reviewing history, physical exam, lumbar x-ray imaging review, and implementation of treatment plan or further diagnostic testing Fabricio Rangel MD,PhD [facility] [employer] Orders: Orders PT Evaluation and Treatment Today M54.16 - Radiculopathy, lumbar region Medications: New gabapentin 300 mg PO TID 90 caps 11RF Coding Level of Care Code New Pt Level 4 (55145) Diagnoses Lumbar radiculopathy M54.16
== END 2023-10-28 12:38 | disposition home or self-care (01) ==
PROVIDERS: PCP Internal Medicine; Visit Provider Physician Assistant
DX: M54.16 Radiculopathy, lumbar region (principal)
CPT/HCPCS: 99204

== ENCOUNTER → 2023-10-28 10:48 | Outpatient (BNVA) | payer OTHER, SELFPAY | PROVIDERS: PCP Internal Medicine; Visit Provider Physician Assistant ==

== ENCOUNTER 2023-11-05 09:03 | Outpatient (REF) | payer OTHER, SELFPAY ==
[2023-11-05 10:21] LABS: Appearance Urine Clear; Color Urine Yellow; Glucose Urine UA Negative (Negative); Leukocyte Esterase Urine Small (1+) (Negative); Nitrite Urine Positive (Negative); PH 6.5 (5.0-9.0); UMIC TRIGGER UA YES; Urine Blood Negative (Negative); Urine Ketones Negative (Negative); Urine Protein Trace mg/dL (Neg-Trace)
[2023-11-05 10:24] LABS: Bacteria Urine 4+ (None Seen); Hyaline Casts Urine 0-2 /LPF (0-2); RBC Urine 0-2 /HPF (0-2); Squamous Epithelial Cell Urine 0-2 /HPF (0-2); WBC Urine 21-50 /HPF (0-5)
[2023-11-05 10:38] LABS: Estimated Average Glucose 131 mg/dL; Hemoglobin A1c % 6.2 % (<6.0)
[2023-11-05 10:56] LABS: Creatinine Urine 144.56 mg/dL; Microalbum/Creatinine Ratio Ur 45.6 ug/mg cr (<30)
[2023-11-05 11:37] LABS: Alanine Aminotransferase 30 U/L (0-40); Albumin Level 4.6 g/dL (3.5-5.0); Alkaline Phosphatase 56 U/L (39-117); Anion Gap 10 (12-20); Aspartate Amino Transferase 22 U/L (5-37); Bilirubin Total 0.5 mg/dL (0.0-1.0); Blood Urea Nitrogen 15 mg/dL (9-16); Calcium 9.6 mg/dL (8.4-10.2); Carbon Dioxide 32 mmol/L (22-29); Chloride 101 mmol/L (96-108); Cholesterol 166 mg/dL (<200); Estimated Glomerular Filt Rate > 60; Glucose Fasting 123 mg/dL (60-99); HDL Cholesterol 37 mg/dL (>40); LDL Cholesterol Calculated 101 mg/dL (<100); Potassium 4.2 mmol/L (3.3-5.1); Sodium 139 mmol/L (135-145); Total Protein 6.9 g/dL (6.5-8.0); Triglycerides 140 mg/dL (<150)
== END 2023-11-05 09:04 | disposition home or self-care (01) ==
LOC: HO.HMGCLDS 09:03
PROVIDERS: PCP Internal Medicine; Visit Provider Internal Medicine
DX: E11.9 Type 2 diabetes mellitus without complications (principal)
CPT/HCPCS: 36415; 80053; 80061; 81001; 82043; 82570; 83036

== ENCOUNTER 2023-11-17 09:18 | Outpatient (REF) | payer OTHER, SELFPAY ==
[2023-11-17 10:20] LABS: MANUAL DIFF FLAG NO
[2023-11-17 10:34] LABS: Basophils Absolute Auto 0.1 X10*3/uL (0.0-0.2); Basophils Percent Auto 1.3 % (0-2); Eosinophils Absolute Auto 0.6 X10*3/uL (0.0-0.4); Hematocrit 42.7 % (42.0-52.0); Hemoglobin 14.5 g/dl (14.0-18.0); Imm Gran Abs Auto 0.02 X10*3/uL (0.00-0.03); Imm Gran Pct Auto 0.3 % (0.0-0.4); Lymphocytes Absolute Auto 2.3 X10*3/uL (1.2-4.9); Lymphocytes Percent Auto 33.3 % (20-40); Mean Corpuscular Hemoglobin 28.7 pg (27.0-33.0); Mean Corpuscular Volume 84.6 fL (80.0-98.0); Mean Platelet Volume 10.4 fL (9.4-12.4); Monocytes Absolute Auto 0.5 X10*3/uL (0.1-1.2); Monocytes Percent Auto 7.5 % (2-11); Neutrophils Absolute Auto 3.5 x10*3/uL (2.0-8.3); Neutrophils Percent Auto 49.6 % (45-73); Platelet Count 166 X10*3/uL (160-400); Red Blood Count 5.05 X10*6/uL (4.60-5.80); Red Cell Distribution Width 14.4 % (11.0-16.0)
[2023-11-17 11:01] LABS: INTERNATIONAL NORM RATIO 0.9 (0.9-1.1); Prothrombin Time 11.4 SEC (11.1-13.3)
== END 2023-11-17 09:19 | disposition home or self-care (01) ==
LOC: HO.HMGCLDS 09:18
PROVIDERS: PCP Internal Medicine; Visit Provider Nurse Practitioner Family
DX: I25.10 Atherosclerotic heart disease of native coronary artery without angina pectoris (principal); E11.9 Type 2 diabetes mellitus without complications; R07.89 Other chest pain; E78.5 Hyperlipidemia, unspecified
CPT/HCPCS: 36415; 85025; 85610

== ENCOUNTER → 2023-12-04 23:59 | Outpatient (BNV) | payer OTHER, SELFPAY | PROVIDERS: PCP Internal Medicine; Visit Provider Internal Medicine Cardiovascular Disease | DX: I20.89 Other forms of angina pectoris (principal) | CPT/HCPCS: 93458; 99152 ==

== ENCOUNTER 2023-12-26 12:47 | Outpatient (AMB) | payer OTHER, SELFPAY ==
--- NOTE | 2023-12-26 12:48 | A.OFFVIS_ITS ---
Intake Visit Reasons: fu post cardiac cath/ iphone Allergies No Known Allergies Allergy (Verified 12/26/23 13:06) Medication List - Last Reconciled 12/26/23 by Ria Navarro, MARÍA-C atorvastatin 80 mg PO ONCE finasteride 5 mg PO DAILY lisinopril 5 mg PO DAILY metformin ER 1,500 mg PO DAILY HPI HPI fu post cardiac cath/ iphone: Details: Luis is a 63-year-old male with past medical history of hyperlipidemia and newer diagnosis of diabetes who was recently seen for reports of atypical sounding chest discomfort. Cardiac testing showed an elevated calcium score any then underwent a diagnostic cardiac catheterization. He is now having a phone visit follow-up. Today he reports that he has been feeling well with no concerning symptoms. He has not been getting recurrent chest discomfort. He has no shortness of breath, no PND, orthopnea or edema. No heart palpitations, lightheadedness, presyncope, syncope, falls. His blood sugars are well controlled. He is hoping to be able to decrease his metformin dose in the near future. He walks routinely for exercise. Right radial catheterization site is feeling good. [facility] Medical History Hyperlipidemia Diabetes Surgical History History of cardiac cath History of prostate surgery Family History Father Diabetes Mother No problems noted. Social History Patient Tobacco Use Status: Never used Tobacco Review of Systems Const All systems reviewed & are unremarkable except as noted in HPI and below ENT Denies dizziness and Denies nose pain Card Denies chest pain, Denies chest pain at rest, Denies chest pain with activity, Denies rapid heart rate, Denies pedal edema, Denies edema, Denies leg edema, Denies lightheadedness, Denies palpitations, Denies dyspnea, Denies dyspnea on exertion and Denies orthopnea Resp Denies cough, Denies dyspnea and Denies dyspnea on exertion GI Denies hematochezia and Denies change in stool character Musc Denies abnormal gait, Denies limited range of motion, Denies muscle cramps, Denies muscle weakness, Denies numbness, Denies radiating pain into limb, Denies stiffness and Denies tingling Neuro Denies abnormal gait, Denies dizziness, Denies numbness and Denies tingling Endo Denies palpitations Telehealth Telehealth Telehealth Platform: Other (please specify) Location of provider rendering services: other Location of patient: address on file Patient Identification confirmed using: Name, : Yes Telehealth method: video Patient verbally consented to treatment: No Patient verbally consented to billing insurance company: Yes Patient informed of any privacy concerns related to visit: No Assessment & Plan Assessment & Plan (1) Atypical chest pain: Code(s): R07.89 - Other chest pain Category: Medical Plan: Prior reports of chest pressure occurring randomly and with activity. No prior known history coronary artery disease. Cardiac risks of hyperlipidemia and new diagnosis of diabetes. EKG done last visit shows normal sinus rhythm with no acute ST or T-wave abnormalities. Exercise stress test on 08/29/2023 with exercise over 10 minutes, no anginal symptoms and no EKG changes of ischemia. Echocardiogram done 08/29/2023 showing EF 66%, no regional wall motion abnormalities, no valve abnormalities, mild dilation at the sinus of Valsalva 4.1 cm, ascending aorta 4.1 cm. Coronary calcium score was elevated at 653, primarily in the LAD and RCA. He underwent a cardiac catheterization on 12/04/2023 showing proximal LAD 30% stenosis, RCA minimal irregularities. He denies any concerning symptoms with his right radial catheterization site. All test results reviewed with him in detail. Diagnosis of nonobstructive coronary artery disease discussed. Need for risk factor modification reviewed. Labs done 11/05/2023 had shown LDL 101. At that time his atorvastatin had been increased from 40 mg daily up to 80 mg daily. Has an upcoming repeat lipid profile due. Blood pressure has been adequately controlled. He tells me his blood sugars are also well controlled. Will have him start on aspirin 81 mg daily. Continue high-dose atorvastatin. Signs and symptoms of angina reviewed with him. Cardiology office visit follow-up due in August.. He has a recheck of his echo do prior to that visit due to dilated aorta. (2) Diabetes: Code(s): E11.9 - Type 2 diabetes mellitus without complications Category: Medical Plan: Newer diagnosis. Hemoglobin A1c goal less than 7. Being followed by his PCP. He has been working on diet, exercise and weight loss as well. (3) Hyperlipidemia: Code(s): E78.5 - Hyperlipidemia, unspecified Category: Medical Plan: [place] LDL goal less than 70 in patient with diabetes and now nonobstructive CAD. He is currently on atorvastatin 80 mg daily. He has an upcoming lipid profile do as ordered by his PCP. (4) Ascending aorta dilatation: Code(s): I77.810 - Thoracic aortic ectasia Category: Medical Plan: Ascending aorta 4.1 cm and mild dilation at the sinus of Valsalva 4.1 cm on recent echocardiogram. Reviewed with him. Blood pressure is well controlled. Patient denies any history of hypertension. He is on statin. Repeat echo plan 1 year from last. Plan Time spent on chart review, documentation, interview and assessment Medications: New aspirin 81 mg PO DAILY Coding Level of Care Code Tele New Pt Level 3 (93911) Diagnoses Atypical chest pain R07.89 Diabetes E11.9 Hyperlipidemia E78.5 Ascending aorta dilatation I77.810 Time Spent (min) 24
== END 2023-12-26 14:10 | disposition home or self-care (01) ==
LOC: HO.HCS 12:47
PROVIDERS: PCP Internal Medicine; Visit Provider Nurse Practitioner Family
DX: I77.810 Thoracic aortic ectasia (principal); R07.89 Other chest pain; E11.9 Type 2 diabetes mellitus without complications; E78.5 Hyperlipidemia, unspecified
CPT/HCPCS: 99213

== ENCOUNTER → 2023-12-26 12:47 | Outpatient (BNVA) | payer OTHER, SELFPAY | PROVIDERS: PCP Internal Medicine; Visit Provider Nurse Practitioner Family ==

== ENCOUNTER → 2024-08-13 07:43 | Outpatient (REF) | payer OTHER, SELFPAY ==
--- NOTE | 2024-08-13 07:52 | CA_ITS ---
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 Normal LV ejection fraction of 60 65% with impaired relaxation filling pattern 2. Cardiac valvular Dopplers within normal limits 3. Mildly dilated ascending aorta at 4 cm 4. No gross pericardial effusion Findings Left Ventricle Normal left ventricular size, thickness, and systolic function. The visually estimated ejection fraction is between 60-65%. Spectral Doppler is indicative of an impaired relaxation filling pattern. E/E prime ratio is between 8 and 15 consistent with indeterminate filling pressures. Right Ventricle Normal right ventricular cavity size and systolic function. Atria Both atria are normal in size. Interatrial shunt cannot be excluded. Aortic Valve Normal aortic valve structure and function. There is no aortic valve stenosis. There is no aortic valve regurgitation. Mitral Valve Normal mitral valve structure and function. There is trace mitral valve regurgitation. There is no mitral valve stenosis. Pulmonic Valve The pulmonic valve is likely normal. Tricuspid Valve Likely normal tricuspid valve structure and function. Tricuspid regurgitation envelope is inadequate for calculation of right ventricular systolic pressure. Normal right atrial pressure. Great Vessels The pulmonary artery was not well visualized. There is mild dilatation of the ascending aorta measuring 4.00 cm. Venous The inferior vena cava is normal in size and collapses greater than 50% with inspiration. Pericardium/Pleural There is no evidence of pericardial effusion. Prior Study Comparison No significant change compared to prior study dated: 08/29/2023. Measurements 2D Linear Measurements IVSd: 1.10 0.6-0.9/0.6-1.0 cm LVIDd: 5.09 3.9-5.3/4.2-5.9 cm LVIDd Index: 2.60 2.4-3.2/2.2-3.1 cm/m2 LVIDs: 2.96 2.0-3.6 cm LVPWd: 0.79 0.7-1.1 cm LA Diam: 3.30 2.7-3.8/3.0-4.0 cm LAIDs Index: 1.68 1.5-2.3 cm/m2 LV Mass: 216.07 67-162/88-224 g LV Mass Index: 110.24 43-95/49-115 g/m2 LVOT Diam: 2.40 3.0+(-)1.3 cm 2D Systolic Function EF 4C: 62.80 >55% EF 2C: 66.30 >55% EF BiP: 64.80 >55% Mitral Valve MV Pk E: 0.75 MV PK A: 0.67 MV Decel Time: 201.00 E/A: 1.10 E'Lateral: 8.81 E'Medial: 6.31 E/E' Med: 11.80 E/E' Lat: 8.50 PHT: 59.00 MVA PHT: 3.73 Decel Treasure: 3.72 Aortic Valve AoV Pk Javi: 1.35 AoV Mn Javi: 0.92 AoV VTI: 0.31 AoV Pk Grad: 7.00 Aov Mn Grad: 4.00 ANDREW Cont.VTI: 2.81 LVOT LVOT Pk Javi: 0.99 LVOT Mn Javi: 0.62 LVOT VTI: 0.19 LVOT Pk Grad: 4.00 LVOT Mn Grad: 2.00 LVOT Diam: 2.40 LVOT Area: 4.52 Diastolic Function MV Pk E: 0.75 MV Pk A: 0.67 E/A: 1.10 E'Medial: 6.31 E/E' Med: 11.80 E' Laterial: 8.81 E/E' Lat: 8.50 Right Ventricle TAPSE (mm): 23.50 TVS' Javi: 11.40 Tricuspid Valve RA Press: 3.00 Great Vessels Aorta Sinus of Valsalva: 4.06 2.0-3.5 cm Ao Asc: 4.00 2.1-3.4 cm Ao Arch: 3.40 Updated in Other Vendor System with Status of Final Nishant Alvarado MD electronically signed on 08/13/2024 2:08:08 PM with status of Final
== END ==
LOC: HO.CARD 07:43
PROVIDERS: PCP Internal Medicine; Visit Provider Nurse Practitioner Family
DX: I77.810 Thoracic aortic ectasia (principal)
CPT/HCPCS: 93306

== ENCOUNTER → 2024-08-13 07:52 | Outpatient (BNV) | payer OTHER, SELFPAY | PROVIDERS: PCP Internal Medicine; Visit Provider Internal Medicine Cardiovascular Disease | DX: I77.810 Thoracic aortic ectasia (principal) | CPT/HCPCS: 93306 ==

== ENCOUNTER 2024-12-28 08:51 | Outpatient (AMB) | payer OTHER, SELFPAY ==
--- NOTE | 2024-12-28 09:01 | A.OFFPC_ITS ---
Vital Signs 12/28/24 09:04 Height 5 ft 10 in Weight 174 lb BMI 25.0 BP 105/56 L Respiration 14 Pulse 58 Pulse Source Pulse Oximeter Temp 97.5 F Temp Source Temporal Artery Scan Pulse Oximetry (%) 99 Oxygen Delivery Method Room Air Intake Visit Reasons: 6 Month Follow Up Urgent Care Physician Required: No Accompanied by: Self / Same As Patient Allergies No Known Allergies Allergy (Verified 12/28/24 09:07) Tobacco use date assessed: 12/28/24 Dental Screening Dental Screen Date: 12/28/24 Did you have a dental visit in the last 12 months?: Yes Did you have a dental problem in the last 6 months where you did not have access to dental care?: No Was dental information given to patient?: Patient has dentist [facility] Medical History Hyperlipidemia Diabetes Surgical History History of colonoscopy (~10/14/16) History of cardiac cath History of prostate surgery Family History Father Diabetes Mother No problems noted. Social History (Updated 12/28/24 @ 09:09 by TIERNEY Degroot) Housing: House Alcohol intake: current Alcohol intake frequency: a few times a week Patient Tobacco Use Status: Never used Tobacco service: No Current occupational status: employed Cognitive needs: No Hearing needs: No Vision needs: Yes (reading glasses) Questionnaire PHQ-9 Over the last 2 weeks, how often have you been bothered by any of the following problems? 1. Little interest or pleasure in doing things: not at all 2. Feeling down, depressed, or hopeless: not at all 3. Trouble falling or staying asleep, or sleeping too much: not at all 4. Feeling tired or having little energy: not at all 5. Poor appetite or overeating: not at all 6. Feeling bad about yourself - or that you are a failure or have let yourself or your family down: not at all 7. Trouble concentrating on things, such as reading the newspaper or watching television: not at all 8. Moving or speaking so slowly that other people could have noticed. Or the opposite - being so fidgety or restless that you have been moving around a lot more than usual: not at all 9. Thoughts that you would be better off or of hurting yourself in some way: not at all Total score: 0 Source: Developed by Drs. Héctor Nova, Heidi Pantoja, Jerry Cao and colleagues, with an educational mary from [employer]. Thrive Questionnaire Date Thrive assessed: 12/28/24 I am a: Patient What is your living situation today?: I have a steady place to live Within the past 12 months, did the food you bought not last and you didn't have the money to get more?: Never true Within the past 12 months, did you worry whether your food would run out before you got money to buy more?: Never true Do you have trouble paying for medicines?: No Do you have trouble getting transportation to medical appointments?: No Do you have trouble paying your heating and electricity bill?: No Do you have trouble taking care of your child, family member or friend?: No Do you have trouble with day-to-day activities such as bathing, preparing meals, shopping, managing finances, etc.?: No Are you currently unemployed and looking for a job?: No Are you interested in more education?: No Please select the resources that you would like help with: None THRIVE Score: 0 AUDIT C Alcohol Use Questionnaire (AUDIT-C) 1. How often do you have a drink containing alcohol?: 4 or more times a week 2. How many drinks containing alcohol do you have on a typical day when you are drinking?: 1 or 2 3. How often do you have six or more drinks on one occasion?: Never Total Score: 4 CRISTINO-7 AMB Questionnaire CRISTINO-7 Date CRISTINO - 7 assessed: 12/28/24 Feeling nervous, anxious, or on edge: 0 = Not at all Not being able to stop or control worryin = Not at all Worrying too much about different things: 0 = Not at all Trouble relaxin = Not at all Being so restless that it is hard to sit still: 0 = Not at all Becoming easily annoyed or irritable: 0 = Not at all Feeling afraid as if something awful might happen: 0 = Not at all Total CRISTINO-7 score (0-4 normal; 5-9 mild; 10-14 moderate; 15-21 severe): 0 Source: Developed by Drs. Héctor Nova, Heidi Pantoja, Jerry Cao and colleagues, with an educational mary from [employer]. Physical exam (Primary Care) Vital Signs: Last Vital Signs Temp 97.5 F 12/28/24 09:04 Pulse 58 12/28/24 09:04 Resp 14 12/28/24 09:04 BP 105/56 L 12/28/24 09:04 Pulse Ox 99 12/28/24 09:04 Oxygen Delivery Method Room Air 12/28/24 09:04 BMI result Body Mass Index 25.0 Tobacco/Smoking Status: Tobacco use Status Tobacco use date assessed 12/28/24 12/28/24 09:09 Patient Tobacco Use Status Never used Tobacco 12/28/24 09:09 PHQ-9: PHQ-9 Score PHQ-9: Total score 0 12/28/24 09:09 Thrive Assessment: Date of Thrive Assessment Date Thrive assessed 12/28/24 12/28/24 09:09 Coding Level of Care Code New Pt Level 4 (03558) Complex EM visit Add On G2211 Diagnoses Diabetes E11.9 Enlarged prostate N40.0 Assessment & Plan Assessment & Plan (1) Diabetes: Code(s): E11.9 - Type 2 diabetes mellitus without complications Category: Medical Plan: A1c is less than 6.0. I agreed that patient can stop Metformin (per his request). (2) Enlarged prostate: Code(s): N40.0 - Benign prostatic hyperplasia without lower urinary tract symptoms Category: Medical Plan: Has a urologist. Plan History of Present Illness - The patient is a 64-year-old male presenting for a follow-up visit primarily to discuss diabetes management and review multiple health concerns. - He transitioned from prediabetes to Type 2 Diabetes due to steroid treatment post-back injury and reports significant weight loss. - The back injury led to periods of immobility due to a pinched nerve, managed initially with steroids, which then required a switch to gabapentin for pain relief. - Additionally, he underwent a coronary catheterization after a high coronary calcium score, finding only a 30% arterial blockage. - Past complications included difficulty swallowing for which a barium swallow test was unremarkable. - Reports persistent double vision, worsened by fatigue, likely related to strabismus, compounded by prior COVID-19 infection onset, associated with brain fog and sinus headache. - He notes a significant improvement in diabetes control with an A1c of 5.9 following lifestyle changes and therapeutic adjustments. 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 - He works remotely and plans to retire in [facility], having resided in [place] for 30 years. - Exercise includes stretches and core strengthening facilitated through his work's health program, contributing to improved weight management. - The patient reports a favorable nutritional intake, aiming to regain weight with a goal of adding 10 pounds to his present weight of 162-165 pounds. Review of Systems - Cardiovascular: Reports shortness of breath. - Endocrine: Reports fatigue; improving glucose levels after a history of st eroid-induced hyperglycemia. - Musculoskeletal: Reports a back injury with a history of herniated disc and vertebral fracture; neuralgic leg pain improved with gabapentin. - Neurological: Reports fatigue-related double vision; reports cognitive disruptions following COVID-19 infection. - Vision: Reports diplopia, especially when fatigued, with history of strabismus. - Respiratory: Reports shortness of breath historically, with subsequent confirmatory investigative results for coronary involvement. Physical Exam General: Cooperative and healthy appearing Nutritional Appearance: Well nourished Orientation/consciousness: Patient oriented x3 Limitations: No limitations Head: Normal to inspection General: Appearance normal, both eyes and all related structures Neck: Normal visual inspection Chest: Normal palpation of entire chest wall Respiratory: Patient reports experiencing shortness of breath and has undergone a coronary calcium score and echocardiogram. ormal respiratory effort Neurology: Patient oriented x3. Reports a history of pinched nerve in the leg and neck, resulting in weakness on the right side. Also reports double vision, particularly when fatigued, and has been diagnosed with strabismus in the right eye. Results - Labs: A1c 5.9%, Glucose 123 mg/dL, PSA 3.9, Cholesterol 142 mg/dL, Triglycerides 81 mg/dL, HDL 62 mg/dL, LDL 63.8 mg/dL - Imaging: Coronary catheterization showed 30% blockage in one artery. Plan 1. Diabetes Mellitus Type 2 - Discontinue metformin as the patient's blood glucose levels have normalized; consider re-initiating if levels elevate. 2. Hypercholesterolemia - Maintain current dosage of atorvastatin 80 mg, monitoring lipid levels. 3. Neuralgia Due To Pinched Nerve - Effective use of gabapentin for pain control. 4. Herniated Disc - Observational approach; no surgical intervention planned. 5. Double Vision/Strabismus - Manage fatigue to mitigate double vision incidence; further assessment only if symptoms exacerbate. 6. Covid-19 Related Complications - Recommend cognitive and endurance exercises to counteract long-term effects. Discussion Notes The patient and I discussed the transition from prediabetes to diabetes mellitus primarily due to steroid usage for a back injury, resulting in a significant alteration in glucose levels. We examined ongoing management strategies, including discontinuing metformin due to improved glucose control and a recent decrease in A1c to 5.9%. The risk of potential glucose level rebound and a plan for re-evaluation if levels worsen were outlined. For hypercholesterolemia, continuation of atorvastatin was advised with potential adjustments contingent upon cardiology input, aimed at potentially reducing dosage if cholesterol remains controlled. Neuralgia was addressed with gabapentin proving successful for alleviating symptoms, precluding the need for steroid interventions. Concerns surrounding COVID-19 sequelae, notably cognitive and visual disturbances, were acknowledged, emphasizing cognitive rehabilitation and monitoring. Strabismus and the associated double vision were attributed to fatigue, to be monitored rather than surgically addressed due to adaptation. We reviewed pertinent diagnostic results, ensuring patient understanding. Follow-up plans include obtaining [facility] lab data and scheduling subsequent visits for monitoring purposes within six months. Patient Instructions - Stop taking metformin. Monitor your glucose levels at home; if they rise, contact me. - Keep taking your atorvastatin and lisinopril as prescribed. - Practice exercises and stay active for your back and overall health. - Try to manage fatigue to help reduce double vision. - Call me if you experience any new or worsening symptoms. - Schedule and complete lab work locally before your next appointment with me. - Continue with your health maintenance plan and routine cardiology visits.
[2024-12-28 09:04] VITALS: BP 105/56; PULSE 58; RESP 14; TEMP 36.4; O2SAT 99; BMI 25.0
--- OUTSIDE RECORDS SUMMARY | 2024-12-28 09:20 | XMS_ITS | Clinical Summary ---
Author Organization [facility] Address [address] [place] [address] Care Team Providers Care Melt Room Operator Name Role Phone Pcp, No Primary Care Provider Unavailabl e Allergies No known active allergies Medications ATORVASTATIN CALCIUM PO Take by mouth. Active finasteride (PROPECIA) 1 MG tablet Take 1 mg by mouth daily. Active doxycycline (VIBRAMYCIN) 100 MG capsuleIndications: Acute rhinosinusitis Take 1 capsule (100 mg total) by mouth 2 (two) times a day. 14 capsule Active Family History Medical History Relation Name Comments No Known Problems Father No Known Problems Mother Relation Name Status Comments Father Mother Social History Tobacco Use Types Packs/Day Years Used Date Smoking Tobacco: Never Smokeless Tobacco: Never Alcohol Use Standard Drinks/Week Comments Not Currently 0 (1 standard drink = 0.6 oz pur e alcohol) Sex and Gender Information Value Date Recorded Sex Assigned at Not on file Legal Sex Male 8:05 AM EST Gender Identity Not on file Sexual Orientation Not on file Last Filed Vital Signs Vital Sign Reading Time Taken Comments Blood Pressure 149/95 07/25/2020 10:01 AM EST Pulse 86 07/25/2020 10:01 AM EST Temperature 36.7 ??C (98.1 ??F) 07/25/2020 10:[address] Respiratory Rate - - Oxygen Saturation 96% 07/25/2020 10:01 AM EST Inhaled Oxygen Concentration - - Weight - - Height - - Body Mass Index - - Plan of Treatment Health Maintenance Due Date Last Done Comments Hepatitis C Virus Screening 1960 HIV Screening 1974 DTaP/Tdap/Td Vaccines (1 - Tdap) 1980 Colonoscopy 2006 Pneumococcal Vaccines 50+ (1 of 1 - PCV) 2011 Zoster (Shingles) Vaccine (1 of 2) 2011 COVID-19 Vaccine (4 - 2023-2 5 season) 2024 06/12/2021, 11/02/2020, 10/05/2020 Influenza Vaccine 02/18/2025 RSV Vaccine 60 years and older and Patients (1 - 1-dose 75+ series) 2036 Hepatitis B Vaccines Aged Out No long er eligible based on patient's age to complete this topic Insurance [employer] Care Teams Melt Room Operator Relationship Specialty Start Date End Date Pcp, No PCP - General General Medicine 07/21/20
== END 2024-12-28 09:39 | disposition home or self-care (01) ==
LOC: HO.HMCSH 08:51
PROVIDERS: PCP Internal Medicine; Visit Provider Internal Medicine
DX: E11.9 Type 2 diabetes mellitus without complications (principal); N40.0 Benign prostatic hyperplasia without lower urinary tract symptoms

== ENCOUNTER → 2024-12-28 08:51 | Outpatient (BNVA) | payer OTHER, SELFPAY | PROVIDERS: PCP Internal Medicine; Visit Provider Internal Medicine | DX: N40.1 Benign prostatic hyperplasia with lower urinary tract symptoms (principal); R68.82 Decreased libido; R97.20 Elevated prostate specific antigen [PSA]; R39.14 Feeling of incomplete bladder emptying; E11.69 Type 2 diabetes mellitus with other specified complication; N52.1 Erectile dysfunction due to diseases classified elsewhere | CPT/HCPCS: 51798; 81003 ==

== ENCOUNTER 2024-12-28 10:22 | Outpatient (AMB) | payer OTHER, SELFPAY ==
--- NOTE | 2024-12-28 10:24 | MHC.OFFVIS ---
Intake Visit Reasons: BPH, no urinary sympt Intake Note: Patient is present for BPH, NO URINAREY SYMPT Urology Medication:FINASTERIDE Antibiotic Allergy:NONE Blood Thinner:ASPIRIN TODAY'S PVR 215ML'S Photographic Hand Developer Required: No Allergies No Known Allergies Allergy (Verified 12/28/24 10:27) HPI Comments Details: Luis is a pleasant male. He is a patient of Dr. Levine. He seen for the following urologic conditions - incomplete bladder emptying - lower urinary tract symptoms - elevated PSA PVR today 200 cc Incomplete bladder emptying Had episode of retention age 41 with prostate intervention Discussed trial bethanechol Check testosterone levels Lower urinary tract symptoms Prior prostate procedure 2014 Dr. connolly Episode retention 2000 On finasteride for many years Elevated PSA 2 prior negative biopsies Previous recommendation for prostate MRI Low libido Recent episodes on steroids for spine surgery PFSH Medical History Hyperlipidemia Diabetes Surgical History History of colonoscopy (~10/14/16) History of cardiac cath History of prostate surgery Family History Father Diabetes Mother No problems noted. Social History (Updated 12/28/24 @ 09:09 by TIERNEY Degroot) Housing: House Alcohol intake: current Alcohol intake frequency: a few times a week Patient Tobacco Use Status: Never used Tobacco service: No Current occupational status: employed Cognitive needs: No Hearing needs: No Vision needs: Yes (reading glasses) Review of Systems Const Denies chills and Denies fever(s) Card Reports no additional complaints and Denies syncope Resp Denies cough GI Denies abdominal pain and Denies heartburn Reports as per HPI and Denies change in libido Neuro Denies syncope Psych Denies change in libido Endo Denies change in libido Physical Exam Const General: cooperative, healthy appearing, comfortable and no acute distress Orientation/consciousness: patient oriented x3 HEENT Face and sinus: Yes normal facial exam Mouth: moist mucous membranes Neck Neck: Yes normal visual inspection, Yes full ROM and Yes trachea midline Chest Chest palpation & inspection: normal inspection of the chest Resp Effort & Inspection: normal respiratory effort, able to speak in complete sentences and no respiratory distress GI Inspection: Yes normal to inspection Back/Spine/Pelvis Cervical Spine: normal cervical lordosis Thoracic/Lumbar Spine: thoracic and lumbar spine normal to inspection Skin General skin exam: no rashes or lesions noted Neuro General: patient oriented x3, gait normal, tone normal and moves all extremities Extrem General: Yes normal to inspection and Yes capillary refill normal Office Procedures Post Void Residual Post Residual Void Post Void Residual (PVR): 215 [id number] Void Residual by ultrasound Results AMB Urinalysis, Automated UA Leukoctes 0 Enrique/uL Last Edit by MATTHEW Fraire on 12/28/24 10:38 UA Nitrite Negative Last Edit by Nidia Brown CCM on 12/28/24 10:38 UA Urobilinogen 0.2 mg/dL Last Edit by MATTHEW Fraire on 12/28/24 10:38 UA Protein 0 mg/dL Last Edit by Nidia Brown CCM on 12/28/24 10:38 UA pH 7.0 Last Edit by Nidia Brown [facility] on 12/28/24 10:38 UA Blood 0 Ivan/uL Last Edit by Nidia Brown [facility] on 12/28/24 10:38 UA Specific Chelsea 1.010 Last Edit by Nidia Brown CCM on 12/28/24 10:38 UA Ketone Negative Last Edit by MATTHEW Fraire on 12/28/24 10:38 UA Bilirubin 0 mg/dL Last Edit by Nidia Brown [facility] on 12/28/24 10:38 UA Glucose 0 mg/dL Last Edit by Nidia Brown [facility] on 12/28/24 10:38 Results Reviewed Results Reviewed: Laboratory Last Values Urine pH (Auto) 7.0 12/28/24 10:37 Specific Chelsea (Auto) 1.010 12/28/24 10:37 Urine Protein (Auto) 0 mg/dL 12/28/24 10:37 Glucose (UA)(Auto) 0 mg/dL 12/28/24 10:37 Urine Ketones (Auto) Negative 12/28/24 10:37 Urine Blood (Auto) 0 Ivan/uL 12/28/24 10:37 Urine Nitrite (Auto) Negative 12/28/24 10:37 Urine Bilirubin (Auto) 0 mg/dL 12/28/24 10:37 Urine Urobilinogen (Auto) 0.2 mg/dL 12/28/24 10:37 Leukocyte Esterase (Auto) 0 Enrique/uL 12/28/24 10:37 Assessment & Plan Assessment & Plan (1) Enlarged prostate: Code(s): N40.0 - Benign prostatic hyperplasia without lower urinary tract symptoms Category: Medical (2) Low libido: Code(s): R68.82 - Decreased libido Category: Medical Plan Check T labs Start bethanechol Three-month follow-up tele Orders: Orders AMB Urinalysis Automated Today Z13.9 - Encounter for screening, unspecified Lutenizing Hormone Today E11.69 - Type 2 diabetes mellitus with other specified complication, N52.1 - Erectile dysfunction due to diseases classified elsewhere, R68.82 - Decreased libido Testosterone, Free/Total Today R68.82 - Decreased libido Medications: New bethanechol chloride 50 mg PO BID 30 days 60 tabs 2RF N39.0 - Urinary tract infection, site not specified, N40.0 - Benign prostatic hyperplasia without lower urinary tract symptoms Patient Instructions: This note is constructed using voice recognition software. While every effort has been made to ensure accuracy fruit room hand errors may have been included. Imaging studies, laboratory and physical exam results were discussed and reviewed in detail. No major barriers to patient understanding were identified. An opportunity to ask questions regarding the treatment plan was provided. All questions were answered. The patient expressed understanding and agreement with the above treatment plan. The patient is aware they should contact our office by phone for worsening of their current condition or the appearance of new urologic symptoms. Compliance is encouraged with any medications and followup testing that is ordered. It is a privilege to participate in the urologic care of your patient. If you have any questions or concerns regarding treatment for the above conditions, or other urologic issues, please do not hesitate to contact me. The office telephone contact is [phone]. Sincerely, Dr Antonino Horton MD, [facility] - Urology Compassionate Specialist Care for the Genitourinary System Coding Level of Care Code New Pt Level 4 (80418) Complex EM visit Add On G2211 Diagnoses Enlarged prostate N40.0 Low libido R68.82 CPT Codes Post Residual Void - PVR CPT Code: 73347-Zeic Void Residual by ultrasound ([id number])
== END 2024-12-28 11:16 | disposition home or self-care (01) ==
LOC: HO.HUSH 10:23
PROVIDERS: PCP Internal Medicine; Visit Provider Urology
DX: N40.0 Benign prostatic hyperplasia without lower urinary tract symptoms (principal); R68.82 Decreased libido; Z13.9 Encounter for screening, unspecified
CPT/HCPCS: 99204

== ENCOUNTER 2024-12-28 11:16 | Outpatient (REF) | payer OTHER, SELFPAY ==
[2024-12-29 04:38] LABS: Lutenizing Hormone 6.5 mIU/mL (1.6-15.2)
[2025-01-01 22:58] LABS: Testosterone, Free 53.1 pg/mL (35.0-155.0); Testosterone, Total 462 ng/dL (250-1100)
== END 2024-12-28 11:17 | disposition home or self-care (01) ==
LOC: HO.10HDL 11:16
PROVIDERS: Visit Provider Urology
DX: R07.89 Other chest pain (principal); E11.69 Type 2 diabetes mellitus with other specified complication; N52.1 Erectile dysfunction due to diseases classified elsewhere; R68.82 Decreased libido; E78.5 Hyperlipidemia, unspecified; I77.810 Thoracic aortic ectasia
CPT/HCPCS: 36415; 83002; 84402; 84403; 93005

== ENCOUNTER 2024-12-28 12:43 | Outpatient (AMB) | payer OTHER, SELFPAY ==
[2024-12-28 12:58] VITALS: BP 102/60; PULSE 62; BMI 24.7
--- NOTE | 2024-12-28 12:58 | A.OFFVIS_ITS ---
Vital Signs 12/28/24 12:58 Height 5 ft 10 in Weight 171 lb 15.369 oz BMI 24.7 BP 102/60 Blood Pressure Location Lt brachial Position Sitting Pulse 62 Pulse Source Monitor Intake Visit Reasons: 1 yr f/up Travel Rn Required: No Allergies No Known Allergies Allergy (Verified 12/28/24 13:00) Medication List - Last Reconciled 12/28/24 by Ria Navarro NP-C aspirin 81 mg PO DAILY atorvastatin 80 mg PO ONCE bethanechol chloride 50 mg PO BID 30 days finasteride 5 mg PO DAILY 90 days lisinopril 5 mg PO DAILY 90 days HPI HPI 1 yr f/up: Details: Luis is a 64-year-old male with past medical history of hyperlipidemia, newer diagnosis of diabetes who was evaluated for atypical chest discomfort. Cardiac testing showed an elevated calcium score any then underwent a diagnostic cardiac catheterization showing LAD 30% stenosis, RCA minimal irregularities. He was started on aspirin, atorvastatin and now presents for follow-up. Today he reports that he has been feeling well with no concerning symptoms. He has not been getting recurrent chest discomfort. He has no shortness of breath, no PND, orthopnea or edema. No heart palpitations, lightheadedness, presyncope, syncope, falls. His blood sugars are well controlled and tells me that he was recently taken off metformin. He says the diabetes was brought on by the use of steroids for his back pain. He will be having a repeat hemoglobin A1c on off metformin in a few months. He has been taking his atorvastatin but states that he had run out of atorvastatin 2 weeks prior to his last lipid profile. He tells me his LDL was 63. Labs were done in [place] and he has a copy of the results with him. He is asking to decrease his atorvastatin dose. He continues to walk routinely for exercise and tolerates it well. [facility] Medical History Hyperlipidemia Diabetes Surgical History History of colonoscopy (~10/14/16) History of cardiac cath History of prostate surgery Family History Father Diabetes Mother No problems noted. Social History Housing: House Alcohol intake: current Alcohol intake frequency: a few times a week Patient Tobacco Use Status: Never used Tobacco service: No Current occupational status: employed Cognitive needs: No Hearing needs: No Vision needs: Yes (reading glasses) Review of Systems Const All systems reviewed & are unremarkable except as noted in HPI and below ENT Denies dizziness Card Denies chest pain, Denies chest pain at rest, Denies chest pain with activity, Denies rapid heart rate, Denies pedal edema, Denies edema, Denies leg edema, Denies lightheadedness, Denies palpitations, Denies dyspnea, Denies dyspnea on exertion and Denies orthopnea Resp Denies cough, Denies dyspnea and Denies dyspnea on exertion GI Denies hematochezia and Denies change in stool character Musc Denies abnormal gait, Denies limited range of motion, Denies muscle cramps, Denies muscle weakness, Denies numbness, Denies radiating pain into limb, Denies stiffness and Denies tingling Neuro Denies abnormal gait, Denies dizziness, Denies numbness and Denies tingling Endo Denies palpitations Physical Exam Vital Signs: BMI result Body Mass Index 24.7 Const General: cooperative, healthy appearing, comfortable and no acute distress Orientation/consciousness: patient oriented x3 Neck Neck: Yes normal visual inspection and Yes no JVD Resp Effort & Inspection: normal respiratory effort Auscultation: clear to auscultation bilaterally, no crackles, no rales, no rhonchi and no wheezes Cardio Jugular venous distension: no JVD Rate: regular rate Rhythm: regular rhythm Heart sounds: S1 normal heart sound present, S2 normal heart sound present, no murmurs and no rubs GI Inspection: Yes normal to inspection Skin General skin exam: no rashes or lesions noted Neuro General: patient oriented x3 Extrem General: Yes normal to inspection, No no pedal edema and No calf tenderness Psych Appearance: grossly normal Mental Status: mental status grossly normal Speech and movement: Normal speech and movement present Office Procedures EKG Details: Today, read by me, normal sinus rhythm, can not exclude prior anterior infarct, could be lead placement, rate 62 CC 412 millisecond [id number], Complete Results AMB Urinalysis, Automated UA Leukoctes 0 Enrique/uL Last Edit by MATTHEW Fraire on 12/28/24 10:38 UA Nitrite Negative Last Edit by Nidia Brown [facility] on 12/28/24 10:38 UA Urobilinogen 0.2 mg/dL Last Edit by Nidia Brown [facility] on 12/28/24 10:3 8 UA Protein 0 mg/dL Last Edit by Nidia Brown [facility] on 12/28/24 10:38 UA pH 7.0 Last Edit by Nidia Brown [facility] on 12/28/24 10:38 UA Blood 0 Ivan/uL Last Edit by Nidia Brown [facility] on 12/28/24 10:38 UA Specific [place] 1.010 Last Edit by Nidia Brown [facility] on 12/28/24 10: 38 UA Ketone Negative Last Edit by Nidia Brown [facility] on 12/28/24 10:38 UA Bilirubin 0 mg/dL Last Edit by Nidia Brown [facility] on 12/28/24 10:38 UA Glucose 0 mg/dL Last Edit by Nidia Brown [facility] on 12/28/24 10:38 Assessment & Plan Assessment & Plan (1) Atypical chest pain: Code(s): R07.89 - Other chest pain Category: Medical Plan: Prior reports of randomly occurring chest pressure leading to cardiac evaluation. Cardiac risks of hyperlipidemia and newer diagnosis of diabetes. Exercise stress test on 08/29/2023 with exercise over 10 minutes, no anginal symptoms and no EKG changes of ischemia. Echocardiogram done 08/29/2023 showing EF 66%, no regional wall motion abnormalities, no valve abnormalities, mild dilation at the sinus of Valsalva 4.1 cm, ascending aorta 4.1 cm. Coronary calcium score was elevated at 653, primarily in the LAD and RCA. He underwent a cardiac catheterization on 12/04/2023 showing proximal LAD 30% stenosis, RCA minimal irregularities. He is managed with aspirin indefinitely. He is on high-dose atorvastatin with recent LDL 63 done in [facility]. He was off atorvastatin 2 weeks prior to the lab draw. Will have him reduce atorvastatin down to 40 mg daily and recheck fasting lipids in 6-8 weeks, gave him lab slip. EKG today showing normal sinus rhythm with no acute ST or T-wave abnormalities, rate 62. Signs and symptoms of angina reviewed with him. Cardiology telephone office visit in 1 year, sooner if needed. (2) Diabetes: Code(s): E11.9 - Type 2 diabetes mellitus without complications Category: Medical Plan: Hemoglobin A1c goal less than 7. Recent hemoglobin A1c 5.9. He tells me he was taken off metformin by his PCP and will have a recheck of hemoglobin A1c in 6 months. (3) Hyperlipidemia: Code(s): E78.5 - Hyperlipidemia, unspecified Category: Medical Plan: [place]ay LDL goal less than 70 in patient with diabetes and now nonobstructive CAD. Reducing atorvastatin to 80 mg daily. I gave him lab slip for fasting lipid profile. (4) Ascending aorta dilatation: Code(s): I77.810 - Thoracic aortic ectasia Category: Medical Plan: Ascending aorta 4.1 cm and mild dilation at the sinus of Valsalva 4.1 cm on echocardiogram 08/29/2023. Repeat echocardiogram 08/13/2024 shows ascending aorta 4 cm. Reviewed with him. Blood pressure is well controlled. He is on statin. Repeat echo in 2-3 years year from last. Plan During the visit, I discussed the patient's cardiovascular management, specifically addressing coronary artery disease with 30% LAD stenosis. Atorvastatin therapy was suggested for reduction from 80 mg to 40 mg to maintain LDL control while minimizing potential side effects. We discussed follow-up lipid testing in 6-8 weeks to ensure adequate LDL levels. Monitoring strategies for stable ascending aortic dilation include echocardiograms every few years. Diabetes management, involving discontinuation of metformin as directed by PCP, was reviewed. The patient was informed of the necessity of maintaining lifestyle changes and the importance of exercise, given the absence of acute symptoms. The benefits and potential risks associated with each intervention were explained, and the patient consented to the planned therapeutic approaches and monitoring strategies. Orders: Orders Lipid Panel 8 Weeks E78.5 - Hyperlipidemia, unspecified Patient Instructions: - Continue taking aspirin daily for heart protection. - Reduce atorvastatin to 40 mg daily; use a pill splitter if needed. - Plan to have a cholesterol test in 6-8 weeks to check your LDL. - Keep monitoring lifestyle, including regular walks and a healthy diet. - Follow up with your primary care doctor about diabetes management. - Watch for any chest pain, pressure, or changes in your symptoms, and seek care if needed. - Schedule routine echocardiograms in a couple of years to monitor aortic dilation. - Use the patient portal for test results and contact if any concerns arise. Patient was informed and verbally consented to the use of an ambient scribe for clinic note documentation during this visit. Visit time spent on chart review, interview, assessment, orders, documentation. Coding Level of Care Code Est Pt Level 4 (17358) Complex EM visit Add On G2211 Diagnoses Atypical chest pain R07.89 Diabetes E11.9 Hyperlipidemia E78.5 Ascending aorta dilatation I77.810 CPT Codes EKG - CPT: 09582-[id number], Complete ([id number]) Time Spent (min) 30
== END 2024-12-28 13:31 | disposition home or self-care (01) ==
LOC: HO.HCS 12:43
PROVIDERS: PCP Internal Medicine; Visit Provider Nurse Practitioner Family
DX: R07.89 Other chest pain (principal); E11.9 Type 2 diabetes mellitus without complications; E78.5 Hyperlipidemia, unspecified; I77.810 Thoracic aortic ectasia
CPT/HCPCS: 93010; 99214